=== PATIENT | female | born 1975 | race Caucasian/White ===

== ENCOUNTER 2017-07-11 08:23 | Emergency (ER) | payer SELFPAY ==
[2017-07-11 08:39] VITALS: BP 123/72; PULSE 138; TEMP 98.2; BMI 29.1
--- NOTE | 2017-07-11 09:08 | PDOC ---
History of Present Illness - General Chief Complaint: Headache Stated Complaint: HEADACHE Time Seen by Provider: 07/11/17 08:55 History Source: Patient Exam Limitations: No Limitations - History of Present Illness Initial Comments: 07/11/17 09:08 Patient here with complaints of nausea, headache pain, dizziness, and generalized body aches. States has been sick for approximately 4 days and thought it was her "migraine". Patient has never been diagnosed by a neurologist with migraine headache but suffers with aura, and symptoms are primarily the same when she gets these headaches. Generally uses Tylenol Extra Strength or Excedrin for headaches with good resolve. Severity: Yes: mild, moderate Associated Symptoms: reports: denies symptoms, muscle spasms. denies: fever/ chills Past History - Travel Traveled outside of the country in the last 30 days: No Close contact w/someone who was outside of country & ill: No - Past Medical History Allergies/Adverse Reactions: Allergies Allergy/AdvReac Type Severity Reaction Status Date / Time No Known Allergies Allergy Verified 07/11/17 08:40 Home Medications: Ambulatory Orders Naproxen [Naprosyn -] 500 mg PO BID #20 tablet 07/11/17 Ondansetron [Zofran *Odt*] 4 mg SL PRN PRN #14 od.tablet 07/11/17 COPD: No Other medical history: MIGRAINES - Suicide/Smoking/Psychosocial Hx Smoking History: Never smoked Hx Alcohol Use: No Drug/Substance Use Hx: No Review of Systems - Review of Systems Able to Perform ROS?: Yes Is the patient limited [place] proficient: Yes Constitutional: Yes: Symptoms Reported, See HPI, Malaise. No: Fever HEENTM: Yes: Symptoms Reported, See HPI, Nose Congestion, Throat Pain Respiratory: Yes: Symptoms reported, See HPI, Cough Cardiac (ROS): No: Symptoms Reported ABD/GI: Yes: Symptoms Reported, See HPI, Nausea, Poor Appetite : Yes: See HPI. No: Symptoms Reported Musculoskeletal: Yes: Symptoms Reported, See HPI, Muscle Pain, Muscle Weakness Integumentary: Yes: See HPI. No: Symptoms Reported, Bruising Neurological: Yes: Symptoms reported, See HPI, Headache All Other Systems: Reviewed and Negative *Physical Exam - Vital Signs Last Vital Signs Temp Pulse Resp BP Pulse Ox 98.2 F 138 H 20 123/72 95 07/11/17 08:35 07/11/17 08:35 07/11/17 08:35 07/11/17 08:35 07/11/17 08:35 - Physical Exam General Appearance: Yes: Nourished, Appropriately Dressed, Mild Distress. No: Apparent Distress HEENT: positive: KAIN, Normal ENT Inspection, TMs Normal, Pharyngeal Erythema, Nasal Congestion, Rhinorrhea. negative: Pharynx Normal Neck: positive: Supple. negative: Lymphadenopathy (R), Lymphadenopathy (L) Respiratory/Chest: positive: Lungs Clear, Normal Breath Sounds Cardiovascular: positive: Regular Rhythm Gastrointestinal/Abdominal: positive: Normal Bowel Sounds, Soft. negative: Tender Musculoskeletal: positive: Normal Inspection Extremity: positive: Normal Capillary Refill, Normal Inspection, Normal Range of Motion Integumentary: positive: Dry, Warm, Pale Neurologic: positive: eating disorder specialist II-XII NML intact, Fully Oriented, Alert, Normal Mood/ Affect, Normal Response, Motor Strength 5/5 Progress Note - Progress Note Progress Note: Upper respiratory infection, probable influenza but greater than 3 days old therefore out of window for Tamiflu treatment. We will treat with Toradol and Zofran for other symptoms and encourage rest and rehydration *DC/Admit/Observation/Transfer Diagnosis at time of Disposition: Influenza-like syndrome - Discharge Dispostion Disposition: HOME Condition at time of disposition: Stable Admit: No - Referrals Referrals: Cuauhtemoc Hernandez MD [Staff Physician] - - Patient Instructions Printed Discharge Instructions: DI for Influenza -- Adult Additional Instructions: Rest, drink lots of fluids: Teas, water, soups, Pedialyte Saltwater gargles Steamy showers/seem to face break up mucus Old-fashioned treatments help! Avoid contact with others until fevers and cough resolved as this is very contagious Lots of handwashing and good hygiene Continue [id number] medications for symptomatic relief Tylenol or Motrin/ Naprosyn for fever and pain May use Zofran for nausea Followup with private physician in one to 2 days as needed or if worsening Return to emergency department for worsened symptoms, fevers, dehydration Influenza takes between 5 and 7 days for resolution To not participate in any activity, work, or school until fevers and cough are gone for at least one day - Post Discharge Activity Forms/Work/School Notes: Back to Work
[2017-07-11] MEDS ORDERED: ONDANSETRON *ODT* 4 MG TABLET SL ONE (09:10)
[2017-07-11] MEDS ORDERED: KETOROLAC TROMETHAMINE 60 MG/2 ML VIAL IM ONE (09:10)
[2017-07-11] MEDS ORDERED: KETOROLAC TROMETHAMINE 60 MG/2 ML VIAL ONE (09:17)
[2017-07-11] MEDS ORDERED: ONDANSETRON *ODT* 4 MG TABLET ONE (09:17)
== END 2017-07-11 09:29 | disposition home or self-care (01) ==
LOC: JERFT 08:23
PROC: 3E0233Z Introduction of Anti-inflammatory into Muscle, Percutaneous Approach (ICD-10-PCS; principal; 2017-07-11)
DX: J11.1 Influenza due to unidentified influenza virus with other respiratory manifestations (principal)
CPT/HCPCS: 99281-25

== ENCOUNTER 2024-09-02 07:44 | Inpatient (IN) | payer OTHER ==
[2024-09-02 07:51] VITALS: BMI 31.4
[2024-09-02] MEDS ORDERED: ACETAMINOPHEN INJECTION 100 ML ONE (08:27)
[2024-09-02] MEDS ORDERED: METOCLOPRAMIDE HCL INJECTION 10 MG/2 ML VIAL ONE (08:27)
[2024-09-02] MEDS: ACETAMINOPHEN 1000 MG/100 ML BAG IVPB ONE (08:47)
[2024-09-02] MEDS: SODIUM CHLORIDE 1,000 ML IV STA (08:47)
[2024-09-02 09:11] LABS: HEMATOCRIT 32.5 % (32.4-45.2); HEMOGLOBIN 10.5 GM/dL (10.7-15.3); MCH 27.1 pg (25.7-33.7); MCHC 32.2 g/dl (32.0-36.0); MEAN CELL VOLUME 84.3 fl (80-96); MEAN PLT VOLUME 7.6 fl (7.5-11.1); PLATELET COUNT 280 10^3/uL (134-434); RBC 3.86 M/mm3 (3.60-5.2); RDW 16.1 % (11.6-15.6); WHITE BLOOD COUNT 12.8 K/mm3 (4.0-10.0)
[2024-09-02] MEDS: METOCLOPRAMIDE HCL INJECTION 10 MG/2 ML VIAL IVPUSH ONE (09:15)
[2024-09-02 09:33] LABS: POTASSIUM 4.1 mmol/L (3.5-5.1)
[2024-09-02 09:35] LABS: ALBUMIN 2.7 g/dl (3.4-5.0); BLOOD UREA NITROGEN 11.8 mg/dL (7-18); CALCIUM 8.5 mg/dL (8.5-10.1)
[2024-09-02 09:38] LABS: CREATININE 0.7 mg/dL (0.55-1.3)
[2024-09-02 09:40] LABS: BILIRUBIN,TOTAL 0.7 mg/dL (0.2-1); TOT PROT 6.8 g/dl (6.4-8.2)
[2024-09-02] MEDS ORDERED: KETOROLAC TROMETHAMINE 10 MG TABLET PO ONE (17:50)
[2024-09-02] MEDS: KETOROLAC TROMETHAMINE 10 MG TABLET PO SCH ×2 (18:22)
[2024-09-02 18:36] LABS: EPI CELLS 32 /uL (0-25.1); HYALINE CASTS 1 /uL (0-3.1); PH,URINE 5.5 (5.0-8.0); URINE APPEARANCE CLEAR; URINE BACTERIA 134 /uL (0-1359); URINE BILIRUBIN NEGATIVE (NEGATIVE); URINE COLOR YELLOW; URINE GLUCOSE (UA) NEGATIVE (NEGATIVE); URINE KETONE NEGATIVE (NEGATIVE); URINE LEUK ESTERASE NEGATIVE (NEGATIVE); URINE NITRITE NEGATIVE (NEGATIVE); URINE PROTEIN NEGATIVE (NEGATIVE); URINE UROBILINOGEN 0.2 mg/dL (0.2-1.0); URINE WBC 16 /uL (0-25.8)
[2024-09-03] MEDS ORDERED: ACETAMINOPHEN 500 MG TABLET (FP) PO PRN (09:01)
[2024-09-03 09:30] LABS: HEMATOCRIT 31.2 % (32.4-45.2); HEMOGLOBIN 9.9 GM/dL (10.7-15.3); MCH 26.9 pg (25.7-33.7); MCHC 31.7 g/dl (32.0-36.0); MEAN CELL VOLUME 84.9 fl (80-96); MEAN PLT VOLUME 7.5 fl (7.5-11.1); PLATELET COUNT 295 10^3/uL (134-434); RBC 3.67 M/mm3 (3.60-5.2); RDW 16.8 % (11.6-15.6); WHITE BLOOD COUNT 12.8 K/mm3 (4.0-10.0)
[2024-09-03 10:21] LABS: ALBUMIN 2.6 g/dl (3.4-5.0); CALCIUM 8.7 mg/dL (8.5-10.1)
[2024-09-03 10:22] LABS: BLOOD UREA NITROGEN 10.4 mg/dL (7-18)
[2024-09-03 10:23] LABS: MAGNESIUM 2.4 mg/dL (1.8-2.4)
[2024-09-03 10:24] LABS: CREATININE 0.6 mg/dL (0.55-1.3)
[2024-09-03 10:25] LABS: PHOSPHOROUS 3.2 mg/dL (2.5-4.9)
[2024-09-03 10:26] LABS: BILIRUBIN,TOTAL 0.7 mg/dL (0.2-1); TOT PROT 6.4 g/dl (6.4-8.2)
[2024-09-03] MEDS: IBUPROFEN 400 MG TABLET (FP) PO SCH (15:11)
[2024-09-04 08:53] LABS: HEMATOCRIT 28.7 % (32.4-45.2); HEMOGLOBIN 9.4 GM/dL (10.7-15.3); MCH 27.7 pg (25.7-33.7); MCHC 32.7 g/dl (32.0-36.0); MEAN CELL VOLUME 84.9 fl (80-96); MEAN PLT VOLUME 7.3 fl (7.5-11.1); PLATELET COUNT 293 10^3/uL (134-434); RBC 3.38 M/mm3 (3.60-5.2); RDW 16.4 % (11.6-15.6); WHITE BLOOD COUNT 8.5 K/mm3 (4.0-10.0)
[2024-09-04 09:18] LABS: POTASSIUM 3.9 mmol/L (3.5-5.1)
[2024-09-04] MEDS: ENOXAPARIN NA (PORCINE) 40 MG/0.4 ML DISP.SYRIN SQ SCH (09:18)
[2024-09-04 09:33] LABS: ALBUMIN 2.4 g/dl (3.4-5.0); BLOOD UREA NITROGEN 10.8 mg/dL (7-18); CALCIUM 8.3 mg/dL (8.5-10.1)
[2024-09-04 09:36] LABS: CREATININE 0.6 mg/dL (0.55-1.3)
[2024-09-04 09:37] LABS: BILIRUBIN,TOTAL 0.8 mg/dL (0.2-1)
[2024-09-04 09:38] LABS: TOT PROT 6.1 g/dl (6.4-8.2)
[2024-09-04 13:01] VITALS: RESP 18
[2024-09-04 14:41] VITALS: BP 130/66; PULSE 115; TEMP 98.1
[2024-09-05 19:07] LABS: MITOCHONDRIAL AB <20.0 Units (0.0-20.0)
== END 2024-09-04 18:39 | disposition home or self-care (01) | DRG 54 ==
LOC: JER 07:44 → JERBED 17:04 → J6S 18:57
PROVIDERS: ADMIT Internal Medicine; ATTEND Internal Medicine
DX: G43.909 Migraine, unspecified, not intractable, without status migrainosus (principal); R74.01 Elevation of levels of liver transaminase levels; R79.89 Other specified abnormal findings of blood chemistry; D73.5 Infarction of spleen; R16.0 Hepatomegaly, not elsewhere classified; E04.1 Nontoxic single thyroid nodule
CPT/HCPCS: 0241U-QW; 36415; 70450-TC; 70491-TC; 70496-TC; 70498-TC; 74177-TC; 74182-TC; 80053; 81003; 81240; 81241; 82390; 82550; 82728; 82977; 83036; 83516; 83540; 83550; 83735; 84080; 84100; 84466; 84703; 85025; 85027; 85045; 85300; 85303; 85597; 85651; 85730; 86038; 86140; 86146; 86147; 86704; 86803; 87340; 87517; 93005; 93010; 93306-TC; 93975; 99285-25; J0131; Q9967